=== PATIENT | female | born 1955 | race Hispanic/Latino ===

== ENCOUNTER 2017-05-03 11:21 | Emergency (ER) | payer OTHER ==
[~2017-05-03] VITALS: Ht 154.9 cm; Wt 66.2 kg
[~2017-05-03 11:21] MED LIST: ASPIRIN EC81 MG PO; ATORVASTATIN CA20 MG PO; BACLOFEN10 MG PO; CIPROFLOXACIN500 M1 PO; GLYBURIDE-METF1 EAC1 PO; HYDROCHLOROTH12.5 M1 PO; JANUVIA50 MG PO; SERTRALINE HCL25 MG PO; ZESTRIL20 MG PO
--- NOTE | 2017-05-03 12:15 | Diagnostic Imaging Report ---
EXAMINATION: Chest, CHEST 2 VIEWS INDICATION: Chest pain COMPARISON: None FINDINGS: LINES: None. Heart: Normal cardiac silhouette. Vascular: The pulmonary vasculature is within normal limits. Atherosclerotic calcifications of the aortic arch. Mediastinum: No mediastinal, hilar, or axillary mass or lymphadenopathy. Lungs: No parenchymal mass. No focal consolidation. Pleura: No pleural effusion. No pneumothorax. Bones: No acute osseous abnormality. Degenerative changes of the thoracic spine. Soft tissues: Normal. Impression: No acute radiographic abnormality. Signed by: Dr. Talon Sin M.D. on 05/03/2017 12:12 PM
[2017-05-03 14:52] VITALS: BP 144/86
== END 2017-05-03 14:55 | disposition home or self-care (01) ==
LOC: ER 11:21
DX: R50.9 Fever, unspecified (principal); R05 Cough; R11.2 Nausea with vomiting, unspecified; J20.9 Acute bronchitis, unspecified; I10 Essential (primary) hypertension; E11.9 Type 2 diabetes mellitus without complications; E78.5 Hyperlipidemia, unspecified
CPT/HCPCS: 71020; 87400; 99283

== ENCOUNTER 2019-02-16 19:46 | Emergency (ER) | payer MEDICARE, OTHER ==
[~2019-02-16] VITALS: Ht 154.9 cm; Wt 66.2 kg
--- OUTSIDE RECORDS SUMMARY | 2019-02-16 19:50 | XMS REPORT ---
Author Author [facility] Address Unknown Phone Unavailable Care Team Providers Care Workers Compensation Coordinator Name Role Phone DERICK RK MACK Unavailable Unavailable Melquiades RIOS Unavailable Unavailable Problems This patient has no known problems. Allergies, Adverse Reactions, Alerts This patient has no known allergies or adverse reactions. Medications This patient has no known medications. Encounters Start Date/Time End Date/Time Encounter Type Admission Type Attending Clinicians Care Facility Care Department Encounter ID 2018-08-01 10:30:00 2018-08-01 10:30:00 Emergency E [id number] Results Test Description Test Time Test Comments Text Results Atomic Results Result Comments POCT-GLUCOSE METER 2018-08-15 08:39:00 POC-GLUCOSE METER (BEAKER) (test mosa=5539) 229 mg/dL 70-110 TESTED AT [address] [address] POCT-GLUCOSE [id number] 08:39:00* Test Item Value Reference Range Comments POC-GLUCOSE METER (BEAKER) (test hegm=3918) 315 mg/dL 70-110 Notified AMENA RODRIGUEZ/TESTED AT [address] [address] BASIC METABOLIC [id number] 07:55:00* Test Item Value Reference Range Comments SODIUM (BEAKER) (test kgvd=307) 138 meq/L 136-145 POTASSIUM (BEAKER) (test ytug=822) 4.6 meq/L 3.5-5.1 CHLORIDE (BEAKER) (test rjvt=874) 109 meq/L 98-107 CO2 (BEAKER) (test rlik=249) 23 meq/L 22-29 BLOOD UREA NITROGEN (BEAKER) (test gxtx=158) 28 mg/dL 7-21 CREATININE (BEAKER) (test cptb=875) 1.39 mg/dL 0.57-1.25 GLUCOSE RANDOM (BEAKER) (test shap=095) 260 mg/dL 70-105 CALCIUM (BEAKER) (test hsgm=111) 8.4 mg/dL 8.4-10.2 EGFR (BEAKER) (test gaqn=4594) mL/min/1.73 sq m INSUFFICIENT CLINICAL DATA TO CALCULATE ESTIMATED GFR. POCT-GLUCOSE [id number] 13:02:00* Test Item Value Reference Range Comments POC-GLUCOSE METER (BEAKER) (test gkok=2531) 336 mg/dL 70-110 TESTED AT [facility] [address] [facility] [address] POCT-GLUCOSE [id number] 13:02:00* Test Item Value Reference Range Comments POC-GLUCOSE METER (BEAKER) (test ylum=3123) 245 mg/dL 70-110 TESTED AT [place] [id number] [facility] [address] POCT-GLUCOSE [id number] 13:02:00* Test Item Value Reference Range Comments POC-GLUCOSE METER (BEAKER) (test hiii=4882) 241 mg/dL 70-110 TESTED AT [place] [id number] [facility] [address] BASIC METABOLIC [id number] 06:26:00* Test Item Value Reference Range Comments SODIUM (BEAKER) (test saxl=072) 134 meq/L 136-145 POTASSIUM (BEAKER) (test nyfk=358) 4.4 meq/L 3.5-5.1 CHLORIDE (BEAKER) (test newl=664) 106 meq/L 98-107 CO2 (BEAKER) (test lzcm=358) 23 meq/L 22-29 BLOOD UREA NITROGEN (BEAKER) (test prgl=630) 48 mg/dL 7-21 CREATININE (BEAKER) (test zawr=095) 1.83 mg/dL 0.57-1.25 GLUCOSE RANDOM (BEAKER) (test dpyp=279) 269 mg/dL 70-105 CALCIUM (BEAKER) (test yslr=214) 8.4 mg/dL 8.4-10.2 EGFR (BEAKER) (test hxon=6620) mL/min/1.73 sq m INSUFFICIENT CLINICAL DATA TO CALCULATE ESTIMATED GFR. CBC W/PLT COUNT & AUTO [id number] 05:47:00* Test Item Value Reference Range Comments WHITE BLOOD CELL COUNT (BEAKER) (test xsms=807) 10.0 K/ L 3.5-10.5 RED BLOOD CELL COUNT (BEAKER) (test oiui=922) 3.37 M/ L 3.93-5.22 HEMOGLOBIN (BEAKER) (test fsoe=877) 9.9 GM/DL 11.2-15.7 HEMATOCRIT (BEAKER) (test ynuz=999) 30.4 % 34.1-44.9 MEAN CORPUSCULAR VOLUME (BEAKER) (test xhid=831) 90.2 fL 79.4-94.8 MEAN CORPUSCULAR HEMOGLOBIN (BEAKER) (test wjzg=954) 29.4 pg 25.6-32.2 MEAN CORPUSCULAR HEMOGLOBIN CONC (BEAKER) (test sgpq=043) 32.6 GM/DL 32.2-35.5 RED CELL DISTRIBUTION WIDTH (BEAKER) (test poll=319) 12.2 % 11.7-14.4 PLATELET COUNT (BEAKER) (test nwlq=229) 215 K/CU MM 150-450 MEAN PLATELET VOLUME (BEAKER) (test nqcv=763) 9.9 fL 9.4-12.3 NUCLEATED RED BLOOD CELLS (BEAKER) (test xefq=959) 0 /100 WBC 0-0 NEUTROPHILS RELATIVE PERCENT (BEAKER) (test znvd=272) 78 % LYMPHOCYTES RELATIVE PERCENT (BEAKER) (test hpdm=645) 13 % MONOCYTES RELATIVE PERCENT (BEAKER) (test jeae=617) 8 % EOSINOPHILS RELATIVE PERCENT (BEAKER) (test gqtb=689) 1 % BASOPHILS RELATIVE PERCENT (BEAKER) (test zouv=761) 0 % NEUTROPHILS ABSOLUTE COUNT (BEAKER) (test mxlq=319) 7.80 K/ L 1.56-6.13 LYMPHOCYTES ABSOLUTE COUNT (BEAKER) (test rcbs=322) 1.25 K/ L 1.18-3.74 MONOCYTES ABSOLUTE COUNT (BEAKER) (test vtka=360) 0.77 K/ L 0.24-0.36 EOSINOPHILS ABSOLUTE COUNT (BEAKER) (test yyjg=730) 0.11 K/ L 0.04-0.36 BASOPHILS ABSOLUTE COUNT (BEAKER) (test mbgz=826) 0.02 K/ L 0.01-0.08 IMMATURE GRANULOCYTES-RELATIVE PERCENT (BEAKER) (test gydj=6574) 1 % 0-1 POCT-GLUCOSE [id number] 17:32:00* Test Item Value Reference Range Comments POC-GLUCOSE METER (BEAKER) (test cuic=6091) 249 mg/dL 70-110 TESTED AT [facility] [address] [facility] [address] POCT-GLUCOSE [id number] 12:36:00* Test Item Value Reference Range Comments POC-GLUCOSE METER (BEAKER) (test zmpe=3069) 279 mg/dL 70-110 TESTED AT [facility] [address] [facility] [address] POCT-GLUCOSE [id number] 08:34:00* Test Item Value Reference Range Comments POC-GLUCOSE METER (BEAKER) (test vleu=7910) 124 mg/dL 70-110 TESTED AT [place] [id number] [facility] [address] BASIC METABOLIC [id number] 05:52:00* Test Item Value Reference Range Comments SODIUM (BEAKER) (test fini=890) 133 meq/L 136-145 POTASSIUM (BEAKER) (test sntf=211) 3.7 meq/L 3.5-5.1 CHLORIDE (BEAKER) (test yvbm=484) 103 meq/L 98-107 CO2 (BEAKER) (test hkiw=228) 22 meq/L 22-29 BLOOD UREA NITROGEN (BEAKER) (test xojy=530) 84 mg/dL 7-21 CREATININE (BEAKER) (test pcwd=800) 3.51 mg/dL 0.57-1.25 GLUCOSE RANDOM (BEAKER) (test inld=754) 99 mg/dL 70-105 CALCIUM (BEAKER) (test hsyr=447) 8.2 mg/dL 8.4-10.2 EGFR (BEAKER) (test lfym=2775) mL/min/1.73 sq m INSUFFICIENT CLINICAL DATA TO CALCULATE ESTIMATED GFR. CBC W/PLT COUNT & AUTO [id number] 05:05:00* Test Item Value Reference Range Comments WHITE BLOOD CELL COUNT (BEAKER) (test svsx=155) 7.7 K/ L 3.5-10.5 RED BLOOD CELL COUNT (BEAKER) (test uegi=423) 3.20 M/ L 3.93-5.22 HEMOGLOBIN (BEAKER) (test ggvb=875) 9.7 GM/DL 11.2-15.7 HEMATOCRIT (BEAKER) (test ohaa=212) 28.5 % 34.1-44.9 MEAN CORPUSCULAR VOLUME (BEAKER) (test vdin=741) 89.1 fL 79.4-94.8 MEAN CORPUSCULAR HEMOGLOBIN (BEAKER) (test yunl=477) 30.3 pg 25.6-32.2 MEAN CORPUSCULAR HEMOGLOBIN CONC (BEAKER) (test lyqg=874) 34.0 GM/DL 32.2-35.5 RED CELL DISTRIBUTION WIDTH (BEAKER) (test ypdw=312) 12.0 % 11.7-14.4 PLATELET COUNT (BEAKER) (test linp=645) 204 K/CU MM 150-450 MEAN PLATELET VOLUME (BEAKER) (test rlkk=583) 10.1 fL 9.4-12.3 NUCLEATED RED BLOOD CELLS (BEAKER) (test bjwy=736) 0 /100 WBC 0-0 NEUTROPHILS RELATIVE PERCENT (BEAKER) (test ljgi=409) 70 % LYMPHOCYTES RELATIVE PERCENT (BEAKER) (test dvlx=974) 20 % MONOCYTES RELATIVE PERCENT (BEAKER) (test rtxv=804) 8 % EOSINOPHILS RELATIVE PERCENT (BEAKER) (test lhje=255) 1 % BASOPHILS RELATIVE PERCENT (BEAKER) (test vqqv=775) 0 % NEUTROPHILS ABSOLUTE COUNT (BEAKER) (test aiti=037) 5.38 K/ L 1.56-6.13 LYMPHOCYTES ABSOLUTE COUNT (BEAKER) (test ukng=483) 1.57 K/ L 1.18-3.74 MONOCYTES ABSOLUTE COUNT (BEAKER) (test nxtc=745) 0.61 K/ L 0.24-0.36 EOSINOPHILS ABSOLUTE COUNT (BEAKER) (test wstd=978) 0.11 K/ L 0.04-0.36 BASOPHILS ABSOLUTE COUNT (BEAKER) (test ltce=287) 0.01 K/ L 0.01-0.08 IMMATURE GRANULOCYTES-RELATIVE PERCENT (BEAKER) (test zapn=8347) 0 % 0-1 U/S, RENAL, [id number] 05:02:00Reason for exam:->akiFINAL REPORT Ultrasound of the Kidneys Clinical History: starla Discussion: Sonographic evaluation of the kidneys was performed. No prior study for direct comparison. Right kidney: 9.4 x 4.1 x 4.3 cm, with cortical thickness of 1.1 cm. Normal cortical echogenicity. No mass. No shadowing calculus. No hydronephrosis. Left kidney: 7.7 x 4.5 x 4.3 cm, with cortical thickness of 1.3 cm. Normal cortical echogenicity. No mass. No shadowing calculus. No h ydronephrosis. Limited doppler evaluation of bilateral main renal arteries and v eins demonstrate patency. Bladder: Distended with a prevoid volume of 306 cc. Small postvoid residual of 44 cc. Impression:No hydronephrosis.Small urinary breann dder postvoid residual. Signed: Holly Verdugo MDReport Verified Date/Time: 07/27 05:02:14 Reading Location: [facility] B1 C013Y CT Body Reading Room [facility] signed by: HOLLY VERDUOG MD on 08/13/2018 05:02 AM POCT-GLUCOSE [id number] 22:50:00* Test Item Value Reference Range Comments POC-GLUCOSE METER (BEAKER) (test jkxk=8764) 95 mg/dL 70-110 TESTED AT [facility] [address] [facility] [address] POCT-GLUCOSE [id number] 22:12:00* Test Item Value Reference Range Comments POC-GLUCOSE METER (BEAKER) (test qwhd=6082) 68 mg/dL 70-110 TESTED AT [place] [id number] [facility] [address] URINALYSIS W/ REFLEX URINE [id number] 21:48:00* Test Item Value Reference Range Comments COLOR (BEAKER) (test koio=222) Yellow CLARITY (BEAKER) (test cwrt=766) Hazy SPECIFIC GRAVITY UA (BEAKER) (test iagn=055) 1.012 1.001-1.035 PH UA (BEAKER) (test xzms=165) 5.0 5.0-8.0 PROTEIN UA (BEAKER) (test tlnj=198) 20 mg/dL Negative GLUCOSE UA (BEAKER) (test jhgn=093) Negative Negative KETONES UA (BEAKER) (test ukoj=629) Trace Negative BILIRUBIN UA (BEAKER) (test rktr=174) Negative Negative BLOOD UA (BEAKER) (test odnb=480) Negative Negative NITRITE UA (BEAKER) (test geoj=470) Negative Negative LEUKOCYTE ESTERASE UA (BEAKER) (test qqgg=836) Large Negative UROBILINOGEN UA (BEAKER) (test pmrx=508) 0.2 mg/dL 0.2-1.0 RBC UA (BEAKER) (test emei=465) 2 /HPF WBC UA (BEAKER) (test quph=361) 18 /HPF BACTERIA (BEAKER) (test pdss=693) Many MUCUS (BEAKER) (test hmra=2446) Rare SQUAMOUS EPITHELIAL (BEAKER) (test ksrp=398) 1 /HPF HYALINE CASTS (BEAKER) (test bdrt=161) 2 /LPF YEAST (BEAKER) (test sexc=4401) Moderate SOURCE(BEAKER) (test lyom=6136) [id number] 18:13:00* Test Item Value Reference Range Comments POTASSIUM (BEAKER) (test rrgw=119) 4.5 meq/L 3.5-5.1 RAD, CHEST, 1 VIEW, NON [id number] 18:06:00Reason for exam:->coughShould this be performed at the bedside?->YesFINAL REPORT Portable chest 08/12/2018, 1554 hours COMPARISON: None Lungs are clear and expanded. Heart is upper limits of normal in size. No mediastinal abnormalities are seen. No significant osseous abnormalities are noted although there are some degenerative changes with hypertrophic changes extending inferiorly from the distal portion of the left clavicle. This, in part, may be related to old trauma. Signed: Isis Mariscal Verified Date/Time: 08/12/2018 18:06:59 Reading Location: [address] Consult Reading Room -GLUCOSE [id number] 17:02:00* Test Item Value Reference Range Comments POC-GLUCOSE METER (BEAKER) (test tyct=8534) 270 mg/dL 70-110 TESTED AT [facility] [address] [place] [address] COMPREHENSIVE METABOLIC [id number] 15:46:00* Test Item Value Reference Range Comments TOTAL PROTEIN (BEAKER) (test euie=181) 7.3 gm/dL 6.0-8.3 Specimen moderately hemolyzed ALBUMIN (BEAKER) (test isoh=9695) 3.8 g/dL 3.5-5.0 Specimen moderately hemolyzed ALKALINE PHOSPHATASE (BEAKER) (test mmqk=106) 60 U/L 40-150 BILIRUBIN TOTAL (BEAKER) (test khxn=077) 0.7 mg/dL 0.2-1.2 Specimen moderately hemolyzed SODIUM (BEAKER) (test oxnv=310) 130 meq/L 136-145 POTASSIUM (BEAKER) (test wbsb=659) 5.4 meq/L 3.5-5.1 Specimen moderately hemolyzed CHLORIDE (BEAKER) (test yqug=087) 93 meq/L 98-107 CO2 (BEAKER) (test hqgv=268) 24 meq/L 22-29 BLOOD UREA NITROGEN (BEAKER) (test jkfs=281) 88 mg/dL 7-21 CREATININE (BEAKER) (test nvro=240) 4.85 mg/dL 0.57-1.25 Specimen moderately hemolyzed GLUCOSE RANDOM (BEAKER) (test blia=177) 232 mg/dL 70-105 CALCIUM (BEAKER) (test fqll=515) 9.2 mg/dL 8.4-10.2 AST (SGOT) (BEAKER) (test nwaq=508) 17 U/L 5-34 Specimen moderately hemolyzed ALT (SGPT) (BEAKER) (test qgsn=025) 12 U/L 6-55 Specimen moderately hemolyzed EGFR (BEAKER) (test safq=2598) mL/min/1.73 sq m INSUFFICIENT CLINICAL DATA TO CALCULATE ESTIMATED GFR. PROTHROMBIN [id number] 15:34:00* Test Item Value Reference Range Comments PROTIME (BEAKER) (test xsjn=305) 14.1 seconds 11.7-14.7 INR (BEAKER) (test ifdi=413) 1.1 <=5.9 RECOMMENDED COUMADIN/WARFARIN INR THERAPY RANGESSTANDARD DOSE: 2.0 - 3.0 Inclu ginger: PROPHYLAXIS for venous thrombosis, systemic embolization; TREATMENT for araceli ous thrombosis and/or pulmonary embolus.HIGH RISK: Target INR is 2.5-3.5 for pat ients with mechanical heart valves.CBC W/PLT COUNT & AUTO [id number] 15:17:00* Test Item Value Reference Range Comments WHITE BLOOD CELL COUNT (BEAKER) (test qafw=296) 7.0 K/ L 3.5-10.5 RED BLOOD CELL COUNT (BEAKER) (test qysi=695) 3.66 M/ L 3.93-5.22 HEMOGLOBIN (BEAKER) (test vkhy=855) 10.8 GM/DL 11.2-15.7 HEMATOCRIT (BEAKER) (test nlqo=460) 32.4 % 34.1-44.9 MEAN CORPUSCULAR VOLUME (BEAKER) (test kgrw=364) 88.5 fL 79.4-94.8 MEAN CORPUSCULAR HEMOGLOBIN (BEAKER) (test axic=015) 29.5 pg 25.6-32.2 MEAN CORPUSCULAR HEMOGLOBIN CONC (BEAKER) (test gmzt=432) 33.3 GM/DL 32.2-35.5 RED CELL DISTRIBUTION WIDTH (BEAKER) (test lcsr=494) 12.0 % 11.7-14.4 PLATELET COUNT (BEAKER) (test myzn=456) 257 K/CU MM 150-450 MEAN PLATELET VOLUME (BEAKER) (test rulb=952) 10.2 fL 9.4-12.3 NUCLEATED RED BLOOD CELLS (BEAKER) (test aanx=313) 0 /100 WBC 0-0 NEUTROPHILS RELATIVE PERCENT (BEAKER) (test hghj=748) 78 % LYMPHOCYTES RELATIVE PERCENT (BEAKER) (test vxsr=341) 14 % MONOCYTES RELATIVE PERCENT (BEAKER) (test ifym=922) 6 % EOSINOPHILS RELATIVE PERCENT (BEAKER) (test xbuw=192) 0 % BASOPHILS RELATIVE PERCENT (BEAKER) (test ergn=671) 0 % NEUTROPHILS ABSOLUTE COUNT (BEAKER) (test zqgp=894) 5.51 K/ L 1.56-6.13 LYMPHOCYTES ABSOLUTE COUNT (BEAKER) (test ywgd=543) 0.99 K/ L 1.18-3.74 MONOCYTES ABSOLUTE COUNT (BEAKER) (test look=392) 0.45 K/ L 0.24-0.36 EOSINOPHILS ABSOLUTE COUNT (BEAKER) (test ckaa=483) 0.03 K/ L 0.04-0.36 BASOPHILS ABSOLUTE COUNT (BEAKER) (test orzj=081) 0.01 K/ L 0.01-0.08 IMMATURE GRANULOCYTES-RELATIVE PERCENT (BEAKER) (test iodb=4064) 1 % 0-[address] [facility] [address] [place] [id number] Patient Name: ARACELI ARTEAGA I MR #: [id number] : 1955 Age/Sex: 61/F Req #: [id number] Adm Physician: Ordered by: MERLENE GONSALEZ Report #: [id number] Location: ER Room/Bed: Procedure: [id number] DX/CHEST 2 VIEWS Exam Date: 05/03/17 Exam Time: 1150 REPORT STATUS: S igned EXAMINATION: Chest, CHEST 2 VIEWS INDICATION: Chest pain COMPARISON: None FINDINGS: LINES: None. Heart: Normal cardiac silhouette. Vascular: The pulmonary vasculature is within normal limits. Atherosclerotic calcifications of the aortic arch. Mediastinum: No mediastinal, hilar, or axillary mass or lymphadenopathy. Lungs: No paren chymal mass. No focal consolidation. Pleura: No pleural effusion. No pne umothorax. Bones: No acute osseous abnormality. Degenerative changes of th e thoracic spine. Soft tissues: Normal. Impression: No acute rad iographic abnormality. Signed by: Dr. Bong Gonzales M.D. on 05/03/2017 12:12 P M Dictated By: BONG GONZALES MD 1212 COPY TO: MERLENE WATERS
--- OUTSIDE RECORDS SUMMARY | 2019-02-16 19:50 | XMS REPORT | Summary of Care ---
Author Author KENTON Munson, FAUSTINO Organization Unknown Address Unknown Phone Unavailable Care Team Providers Care Preschool Assistant Name Role Phone KENTON Munson, FAUSTINO Unavailable Unavailable KENTON RODRIGUEZ, FAUSTINO Amee Unavailable Unavailable Unavailable Unavailable Functional Status Name Dates Details Functional status health issues are not documented Status: Name Dates Details Cognitive status health issues are not documented Status: Problems Name Dates Details Left elbow pain (719.42, M25.522) Status: Active Sprain of carpal joint of left wrist, initial encounter (842.01, S63.512A) Status: Active Pain of both elbows (719.42, M25.521) Status: Active Left wrist pain (719.43, M25.532) Status: Active Closed nondisplaced fracture of head of left radius, initial encounter (813.05, S52.125A) Status: Active Closed nondisplaced fracture of head of left radius with routine healing, subsequent encounter (V54.12, S52.125D) Status: Active Sprain of carpal joint, left, subsequent encounter (V58.89, S63.512D) Status: Active Medications Name Dates Details amLODIPine Besylate 10 MG Oral Tablet Active Atorvastatin Calcium 40 MG Oral Tablet * Refills: 0 Active Lisinopril-HCTZ 25-20 MG TABS * Refills: 0 Active tiZANidine HCl - 4 MG Oral Tablet * Refills: 0 Active Topiramate ER 25 MG Oral Capsule ER 24 Hour Sprinkle * Refills: 0 Active Vitamin D3 2000 UNIT Oral Tablet * Refills: 0 Active HumaLOG KwikPen 100 UNIT/ML Subcutaneous Solution Pen-injector * Refills: 0 Active Basaglar KwikPen SOPN * Refills: 0 Active Allergies and Adverse Reactions Name Dates Details Penicillins (Allergy) Status: Active Past Medical History Name Dates Details History of Diabetes (250.00, E11.9) Status: Resolved History of High blood pressure (401.9, I10) Status: Resolved Procedures Procedure Dates Details History of Hysterectomy Completed Immunization Name Dates Details Immunizations not documented Social History Name Dates Details - Status: Name Dates Details Never smoker Vital Signs Date Test Result Details 17-Nqv-99029:36 Height 61 in Status: Weight 137 lb Status: Body Mass Index Calculated 25.89 kg/m2 Status: Body Surface Area Calculated 1.61 m2 Status: 88-Wsm-633344:06 BP Systolic 142 mm[Hg] Status: BP Diastolic 75 mm[Hg] Status: Height 61 in Status: Weight 130 lb Status: Body Mass Index Calculated 24.56 kg/m2 Status: Body Surface Area Calculated 1.57 m2 Status: Results Date Description Value Details Results not documented Plan of Care Name Dates Details Planned Observations Planned Goals not documented Interventions Provided Plan* Follow Up: * Please schedule an appointment as needed for any future problems or concerns. * She has reached maximum medical recovery for this injury. Her ROM is better and her pain is also greatly improved. She feels ready to RTW FD. HEP again encouraged. If she does have any future troubles related to the injury, we can certainly see her with authorization. Work status: FD going forward and she is pleased with the plan. Instructions Name Dates Details Instructions not documented Encounters Appointment; FAUSTINO FUNG M.D. Encounter Diagnosis: Problem not documented On: 30-Jul-2018 9:00 Appointment; FAUSTINO FUNG M.D. Encounter Diagnosis: Problem not documented On: 20-Aug-2018 11:30 Appointment; FAUSTINO FUNG M.D. Encounter Diagnosis: Problem not documented On: 17-Sep-2018 10:00 Appointment; FAUSTINO FUNG M.D. Encounter Diagnosis: Problem not documented On: 15-Oct-2018 9:30
== END 2019-02-16 21:13 | disposition home or self-care (01) ==
LOC: ER 19:46
DX: L24.9 Irritant contact dermatitis, unspecified cause (principal); I10 Essential (primary) hypertension; E11.9 Type 2 diabetes mellitus without complications; E78.00 Pure hypercholesterolemia, unspecified
CPT/HCPCS: 99282